=== PATIENT | female | born 1965 | race Caucasian/White ===

== ENCOUNTER → 2017-05-22 08:01 | Outpatient (CLI) | payer BC ==
[2012-12-11 15:47] VITALS: BMI 24.0
[~2017-05-22 08:01] MED LIST: ASPIRIN325 MG PO; PRILOSEC20 MG PO; SYNTHROID125 MCG PO; TRIGLIDE160 MG PO
== END | disposition home or self-care (01) ==
LOC: D.CT 08:01
DX: R31.9 Hematuria, unspecified (principal)

== ENCOUNTER 2017-07-31 12:19 | Day surgery (SDC) | payer BC ==
[~2017-07-31] VITALS: Ht 162.6 cm; Wt 65.8 kg
--- NOTE | ~2017-07-31 | OP ---
PATIENT NAME: ESTEFANIA COLE MEDICAL RECORD: [id number] :65 LOCATION:D.OPS ADMISSION DATE: SURGEON: CECILE TONG MD DATE OF OPERATION: 07/31/2017 REFERRING PHYSICIAN: Ned Roca MD INSTRUCTOR WATCH ASSEMBLY/ONCOLOGIST: Carrie Monk MD INDICATIONS: Ms. 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 Her last colonoscopy was 03/22/2014 with finding showing sigmoid diverticulosis, hyperplastic rectal polyps, grade I internal hemorrhoids. She presents for outpatient surveillance colonoscopy. PREMEDICATIONS: Total IV anesthesia (propofol 180 mg). INSTRUMENT: Olympus video colonoscope. PROCEDURE AND FINDINGS: After receiving informed consent, Ms. Cole was placed in left lateral decubitus position and sedated as per anesthesia. After achieving adequate level of sedation, digital rectal exam was performed that showed no external hemorrhoidal tags, fissures, or fistulas. Normal sphincter tone, no palpable rectal masses. The colonoscope was introduced per rectally and advanced to the cecum without difficulty. The cecum, IC valve, and appendiceal orifice were identified. The terminal ileum was intubated and the distal small bowel mucosa was without erythema or ulcers. As the colonoscope was withdrawn, careful inspection was made of the glaser of the colon. Overall mucosa had normal vascular and fold pattern. There were few scattered diverticula seen in the sigmoid colon. Retroflexion in the rectum showed mild internal hemorrhoids. A good prep was present. Ms. Cole tolerated procedure well, no immediate complications. Withdrawal time was 6 minutes. ASSESSMENT: 1. Mild sigmoid diverticulosis coli. 2. Normal appearing terminal ileum. 3. Normal colonic mucosa. 4. Mild internal hemorrhoids. 5. History of colon polyps. 6. History of breast cancer. 7. Family history of colon cancer. RECOMMENDATIONS: 1. High-fiber diet. 2. Surveillance colonoscopy in 5 years. TRANSINT:[id number] Voice Confirmation ID: [id number] DOCUMENT ID: [id number] OPERATIVE REPORT [id number] ESTEFANIA COLE CECILE TONG MD at 1621 CC: CARRIE MONK MD and NED ROCA [id number] DICTATION DATE: 07/31/[address] DEPARTMENT: 07/31/17 1533 [facility] [place] 07/31/17 [facility] [address] [place] [address]
[2017-07-31 12:58] VITALS: Ht 162.6 cm; Wt 65.8 kg
[2017-07-31 13:19] LABS: HEMATOCRIT 38.5 % (36.0-48.0); HEMOGLOBIN 13.2 g/dL (12-16); MCH 30.6 pg (26.0-34.0); MCHC 34.3 g/dL (31.0-37.0); MCV 89.1 fL (80.0-100.0); MEAN PLATELET VOLUME 10.9 fL (7.4-10.4); RBC 4.32 10x6/uL (4.00-5.40); WBC 5.4 10x3/uL (4.8-10.8)
[2017-07-31 13:46] LABS: CALC OSMOLALITY 277 mosm/kg (275-300); CALCIUM 9.2 mg/dL (8.5-10.1); CARBON DIOXIDE 25.5 mmol/L (21.0-32.0); CHLORIDE - SERUM 102 mmol/L (98-107); CREATININE - SERUM 0.8 mg/dL (0.6-1.3); GLUCOSE 93 mg/dL (74-106); POTASSIUM - SERUM 3.5 mmol/L (3.5-5.1); SODIUM 139 mmol/L (136-145); UREA NITROGEN 12 mg/dL (7-18); eGFR NON AFRICAN AMERICAN 80 mL/min (90-120)
== END 2017-07-31 16:20 | disposition home or self-care (01) ==
LOC: D.OPS 12:19
PROVIDERS: Anesthesiology
DX: K92.1 Melena (principal); Z86.010 Personal history of colon polyps; Z85.3 Personal history of malignant neoplasm of breast; Z80.0 Family history of malignant neoplasm of digestive organs; K64.8 Other hemorrhoids; E03.9 Hypothyroidism, unspecified; K21.9 Gastro-esophageal reflux disease without esophagitis; Z01.812 Encounter for preprocedural laboratory examination

== ENCOUNTER 2017-09-04 12:07 | Day surgery (SDC) | payer BC ==
[~2017-09-04] VITALS: Ht 162.6 cm; Wt 65.9 kg
--- NOTE | ~2017-09-04 | OP ---
PATIENT NAME: ESTEFANIA COLE MEDICAL RECORD: [id number] :65 LOCATION:NATALIYA ADMISSION DATE: SURGEON: CECILE TONG MD DATE OF OPERATION: 09/04/2017 PROCEDURE: EGD with biopsy. INDICATIONS: Ms. Cole is a delightful 52-year-old woman who has had symptoms of intermittent dysphagia, heartburn, and nausea. She had a screening colonoscopy on 07/31/2017 that showed mild sigmoid diverticulosis, mild internal hemorrhoids. She presents for outpatient EGD. PREMEDICATIONS: Total IV anesthesia (propofol 250 mg). INSTRUMENT: Olympus video gastroscope. PROCEDURE AND FINDINGS: After receiving informed consent, Ms. Cole's posterior pharynx was anesthetized with Cetacaine spray. She was placed in left lateral decubitus position, sedated as per anesthesia. After achieving adequate level of sedation, gastroscope was introduced per orally and advanced to duodenum without difficulty. The esophageal mucosa was remarkable for small ulcer at the GE junction. There is no distinct Schatzki's ring. Small hiatal hernia is present. Gastric mucosa was notable for mild prepyloric and antral erythema and antral biopsies were obtained to rule out Helicobacter pylori. No lesions were seen along the incisura, cardia, or fundus. There were multiple small polyps in the body of the stomach measuring 0.3-0.5 cm in size and multiple polyps were biopsied. Pylorus was patent and competent. Duodenal mucosa without erythema or ulcers, also it appeared normal through the second portion. Biopsies were obtained from second portion of duodenum to rule out celiac disease. The gastroscope was then withdrawn. Biopsies were taken from the mid and distal esophagus. ASSESSMENT: 1. Small ulcer at the GE junction secondary to gastroesophageal reflux disease. 2. Small hiatal hernia. 3. Mild gastritis. 4. Gastric polyps. RECOMMENDATIONS: 1. Follow up histopathology. 2. Zantac 150 mg p.o. b.i.d. 3. Reflux precautions. 4. Follow up esophageal ulcer in 2-3 months. Follow up EGD in 2-3 months, document healing of esophageal ulcer. TRANSINT:[id number] Voice Confirmation ID: [id number] DOCUMENT ID: [id number] OPERATIVE REPORT [id number] ESTEFANIA COLE CECILE TONG MD at 1018 CC: ADENIKE MONK MD and SANTIAGO CARRANZA [id number] DICTATION DATE: 09/04/17 1615 TRACK MOVING MACHINE OPERATOR: 09/04/17 1656 [facility] [place] 09/04/17 [facility] [address] [place] [address]
[2017-09-04 12:37] LABS: BASOPHILS 0.2 % (0-2); EOSINOPHILS 1.4 % (0-7); HEMATOCRIT 39.2 % (36.0-48.0); HEMOGLOBIN 13.3 g/dL (12-16); LYMPHOCYTES 40.9 % (15-50); MCH 30.7 pg (26.0-34.0); MCHC 33.9 g/dL (31.0-37.0); MCV 90.5 fL (80.0-100.0); NEUTROPHILS 51.5 % (40-80); PLATELET COUNT 167 10x3/uL (130-400); RBC 4.33 10x6/uL (4.00-5.40); RDW 12.1 % (11.5-14.5); WBC 5.7 10x3/uL (4.8-10.8)
[2017-09-04 13:00] LABS: CALC OSMOLALITY 287 mosm/kg (275-300); CALCIUM 9.3 mg/dL (8.5-10.1); CARBON DIOXIDE 32.8 mmol/L (21.0-32.0); CHLORIDE - SERUM 106 mmol/L (98-107); CREATININE - SERUM 0.7 mg/dL (0.6-1.3); GLUCOSE 100 mg/dL (74-106); POTASSIUM - SERUM 3.7 mmol/L (3.5-5.1); SODIUM 144 mmol/L (136-145); UREA NITROGEN 16 mg/dL (7-18); eGFR NON AFRICAN AMERICAN > 90 mL/min (90-120)
[2017-09-04 14:05] VITALS: BP 129/78; Ht 162.6 cm; Wt 65.9 kg
== END 2017-09-04 17:30 | disposition home or self-care (01) ==
LOC: D.OPS 12:07
PROVIDERS: Anesthesiology
DX: R13.10 Dysphagia, unspecified (principal); E03.9 Hypothyroidism, unspecified; K21.9 Gastro-esophageal reflux disease without esophagitis; K25.9 Gastric ulcer, unspecified as acute or chronic, without hemorrhage or perforation; K44.9 Diaphragmatic hernia without obstruction or gangrene; K31.7 Polyp of stomach and duodenum; Z01.812 Encounter for preprocedural laboratory examination

== ENCOUNTER 2017-10-27 19:00 | Outpatient (CLI) | payer BC ==
[2017-09-04 14:05] VITALS: BMI 24.9
== END 2017-10-27 23:59 | disposition home or self-care (01) ==
LOC: D.MAMMO 19:00
DX: C50.912 Malignant neoplasm of unspecified site of left female breast (principal)

== ENCOUNTER 2018-02-24 13:30 | Day surgery (SDC) | payer BC ==
[~2018-02-24] VITALS: Ht 162.6 cm; Wt 68.2 kg
--- NOTE | ~2018-02-24 | OP ---
PATIENT NAME: ESTEFANIA COLE MEDICAL RECORD: [id number] :65 LOCATION:D.OPS ADMISSION DATE: SURGEON: CECILE TONG MD DATE OF OPERATION: 02/24/2018 PROCEDURE: EGD with biopsy. REFERRING PHYSICIAN: Ned Roca MD AIR MOTOR REPAIRER/ONCOLOGIST: Carrie Monk MD INDICATIONS: Ms. Cole is a delightful 52-year-old woman with history of GE reflux disease, noted to have esophageal ulcer on EGD on 09/04/2017. She had been on Zantac 150 mg twice a day and then omeprazole 20 mg p.o. daily was added. She has continued having some burning high epigastric pain. She presents for outpatient EGD. PREMEDICATIONS: Total IV anesthesia (coronary artery disease), propofol 150 mg. INSTRUMENT: Olympus video gastroscope. PROCEDURE AND FINDINGS: After receiving informed consent, Ms. Cole's posterior pharynx was anesthetized with Cetacaine spray, placed in left lateral decubitus position, and sedated as per anesthesia. After achieving adequate level of sedation, the gastroscope was introduced per orally and advanced to the duodenum without difficulty. The esophageal mucosa was without erythema, ulcers, strictures, or masses. The previously seen esophageal ulcer had healed. Distal third of the esophagus was biopsied for histology. A small sliding-type hiatal hernia was noted. Gastric mucosa was without erythema or ulcers. The mucosa appeared normal in the cardia, fundus, body of the stomach, and antrum. Pylorus was patent and competent. Duodenal mucosa was without erythema or ulcers, appeared normal to second portion. Gastroscope was then withdrawn. Ms. Cole tolerated the procedure well. No immediate complications. ASSESSMENT: 1. Healed esophageal ulcer. 2. Small sliding-type hiatal hernia. 3. GE reflux disease. 4. Burning epigastric pain (antral biopsy on 09/04/2017 was negative for H. pylori). RECOMMENDATIONS: 1. Increase omeprazole to 40 mg p.o. b.i.d. for 3 months. 2. Follow up histopathology. 3. Reflux precautions. TRANSINT:[id number] Voice Confirmation ID: [id number] DOCUMENT ID: [id number] OPERATIVE REPORT [id number] ESTEFANIA COLE CECILE TONG MD at 2003 CC: CARRIE MONK MD and NED ROCA [id number] DICTATION DATE: 02/24/181518 ROLL OVER PRESS OPERATOR: 02/24/181914 [facility] 02/24/18 [facility] [address] [place] [address]
[2018-02-24 13:34] LABS: HEMOGLOBIN 13.3 g/dL (12-16); MCH 30.4 pg (26.0-34.0); MCHC 34.1 g/dL (31.0-37.0); MCV 89.2 fL (80.0-100.0); MEAN PLATELET VOLUME 10.8 fL (7.4-10.4); RBC 4.37 10x6/uL (4.00-5.40); RDW 12.3 % (11.5-14.5); WBC 5.2 10x3/uL (4.8-10.8)
[2018-02-24] MEDS ORDERED: TAMOXIFEN CITRA20 MG PO (14:26)
[2018-02-24] MEDS ORDERED: GEMFIBROZIL600 MG PO (14:27)
[2018-02-24 14:35] VITALS: BP 141/70; Ht 162.6 cm; Wt 68.2 kg
== END 2018-02-24 16:00 | disposition home or self-care (01) ==
LOC: D.OPS 13:30
PROVIDERS: Anesthesiology
DX: K21.9 Gastro-esophageal reflux disease without esophagitis (principal); K44.9 Diaphragmatic hernia without obstruction or gangrene; Z01.812 Encounter for preprocedural laboratory examination

== ENCOUNTER 2018-04-20 11:57 | Outpatient (CLI) | payer BC ==
[~2018-04-20] VITALS: Ht 162.6 cm; Wt 68.2 kg
--- NOTE | ~2018-04-20 | HEMODYNAMI ---
PATIENT:ESTEFANIA FERRARI MEDICAL RECORD: [id number] : 65 LOCATION:[facility]IL[facility] ADMISSION DATE: 04/20/18 Generatedon:04/20/201815:23 Patient name: ESTEFANIA FERRARI Patient #: [id number] SSN: : 1965 Date of study: 04/20/2018 Page: Of Hemodynamic Procedure Report Patient Data Patient Demographics Procedure consent was obtained First Name: ESTEFANIA Gender: Female Last Name: VONDA : 1965 Middle Initial: VIKRAM Age: 52 year(s) Patient #: [id number] Race: Unknown Additional ID: [id number] Contact details [address]: [address] [place] [address] [place] State: [place] City: [place] Zip code: [address] Past Medical History Allergies: No known allergies Admission Admission Data Admission Date: 04/20/2018 Admission Time: 11:57 Procedure Procedure Types Cath Procedure Diagnostic Procedure LHC LHC w/Coronaries Procedure Description Procedure Date Procedure Date: 04/20/2018 Procedure Start Time: 15:15 Procedure End Time: 15:23 Procedure Staff Name Function Tirso Quigley MD Performing Physician Eugenia Hoffman RT Monitor Mónica Flood RN Nurse Yas Sparks RT Scrub Procedure Data Cath Procedure Fluoroscopy Diagnostic fluoroscopy Total fluoroscopy Time: 0.7 time: 0.7 min min Diagnostic fluoroscopy Total fluoroscopy dose: 181 dose: 181 mGy mGy Contrast Material Contrast Material Type Amount (ml) Isovue 300 28 Entry Location Entry Primary Successful Side Size Upsize Upsize Entry Closure Wiggins ccessful Closure Location (Fr) 1 (Fr) 2 (Fr) Remarks Device Remarks Radial Right 6 Fr Mechanical artery Short Compression Estimated blood loss: 5 ml Diagnostic catheters Device Type Used For End Catheter Placement DIAGNOSTIC Rumson 110cm 5 LV Angiography Fr catheter ([id number]) DIAGNOSTIC Rumson 110cm 5 Left Coronary Fr catheter ([id number]) Angiography DIAGNOSTIC Rumson 110cm 5 Right Coronary Fr catheter ([id number]) Angiography Procedure Complications No complications Procedure Medications Medication Administration Route Dosage 0.9% NaCl I.V. 100 ml/hr Oxygen etCO2 Nasal cannula 2 l/min Lidocaine 2% added to field 20 Heparin Flush Bag added to field 2 bags (1000units/500ml NS) Radial Cocktail added to field 1 syringe (Verapomil 2mg/Nitro 400mcg/Heparin 1500units) Versed I.V. 2 mg Fentanyl I.V. 50 mcg Versed I.V. 1 mg Fentanyl I.V. 25 mcg Hemodynamics Rest Heart Rate: 79 (bpm) Pressure Samples Time Site Value (mmHg) Purpose Heart Use Rate(bpm) 15:18 LV 117/5,12 EDP 92 15:19 AO 114/71(91) Pullback 91 15:19 LV 130/11,15 Pullback 91 Gradients Valve Time Site 1 Site 2 Mean SEP/DFP Peak To Heart Use (mmHg) (sec/min) Peak Rate (mmHg) (bpm) Aortic 15:19 LV AO 12 22 16 91 130/11,15 114/71(91) Calculations Valve P-P Mean Valve Index Valve Source Name Gradient Area Flow (cm2) Aortic 16 12 16 12 Snapshots Pre Cath Intra NCS Post Cath Vital Signs Time Heart Resp SPO2 etCO2 NIBP (mmHg) Rhythm Pain Sedation Rate (ipm) (%) (mmHg) Status Level (bpm) 15:07:28 88 13 100 39.9 144/71(112) NSR 0 (11) 10(A) , No pain 15:11:44 82 14 100 44.4 125/66(87) NSR 0 (11) 10(A) , No pain 15:15:58 87 9 99 44.4 119/62(88) NSR 0 (11) 10(A) , No pain 15:20:09 88 8 98 45.9 108/63(90) NSR 0 (11) 10(A) , No pain Medications Time Medication Route Dose Verified Delivered Reason Notes E ffectiveness by by 15:06:26 0.9% NaCl I.V. 100 Tirso Sales used for ml/hr DannMiles Flood procedure MD SAMS 15:06:33 Oxygen etCO2 2 l/min Tirso Sales used for Nasal [facility] Flood procedure cannula MD SAMS 15:06:39 Lidocaine 2% added 20ml Tirso Chahal for local to vial [place] Dann anesthetic field MD [place] 15:06:44 Heparin Flush added 2 bags Tirso Chahal used for Bag to [facility] procedure (1000units/500ml field MD [place]TON NS) 15:06:49 Radial Cocktail added 1 Tirso Chahal used for (Verapomil to syringe [facility] procedure 2mg/Nitro field MD [place]TON 400mcg/Heparin 1500units) 15:13:17 Versed I.V. 2 mg Tirso Sales for DannMiles Flood sedation RN 15:13:24 Fentanyl I.V. [address] Sales [address] [facility] Flood sedation RN 15:18:23 Versed I.V. 1 mg [address]so [address]a [address] [facility] Miles Flood sedation RN 15:18:28 Fentanyl I.V. 25 m[address] Sales [address] [facility] Flood sedation eviction specialist Log Time Note 14:51:00 Time tracking: Regular hours (M-F 7:00 - 5:00) 14:51:05 Plan of Care:Hemodynamics will remain stable., Cardiac rhythm will remain stable., Comfort level will be maintained., Respiratory function will remain adequate., Patient/ family verbilizes understanding of procedure., Procedure tolerated without complication., Recovers from procedure without complications.. 14:51:23 Yas Sparks RT(R) sent for patient. Start room use. 14:59:49 Patient received from Pre/Post Procedure Room to CCL 1 Alert and oriented. Tansferred to table in Supine position. 14:59:50 Warm blankets applied, and raymon hugger turned on for patient comfort. 14:59:50 Correct patient and procedure confirmed by team. 14:59:53 Signed procedure consent form obtained from patient. 14:59:54 ECG and BP/O2 sat monitors applied to patient. 14:59:55 Full Disclosure recording started 15:06:18 Vital chart was started 15:06:26 0.9% NaCl 100 ml/hr I.V. was administered by Mónica Flood RN; used for procedure; 15:06:33 Oxygen 2 l/min etCO2 Nasal cannula was administered by Mónica Flood RN; used for procedure; 15:06:39 Lidocaine 2% 20ml vial added to field was administered by Tirso Quigley MD; for local anesthetic; 15:06:44 Heparin Flush Bag (1000units/500ml NS) 2 bags added to field was administered by Tirso Quigley MD; used for procedure; 15:06:49 Radial Cocktail (Verapomil 2mg/Nitro 400mcg/Heparin 1500units) 1 syringe added to field was administered by Tirso Quigley MD; used for procedure; 15:09:21 Rhythm: sinus rhythm 15:09:23 Baseline sample Acquired. 15:09:30 H&P Date Dictated: 04/14/2018 Within 30 days and on chart., H&P Addendum completed by physician on day of procedure. (MUST COMPLETE FOR ALL OUTPATIENTS). 15:09:32 Pre-procedure instructions explained to patient. 15:09:32 Pre-op teaching completed and patient verbalized understanding. 15:09:35 Family in patients room. 15:09:37 Patient NPO since Midnight. 15:09:44 Patient allergic to No known allergies 15:09:46 Is the patient allergic to Iodine/contrast media? No. 15:09:47 Is patient on blood thinner?No 15:09:48 Patient diabetic? No. 15:10:01 Previous problem with sedation/anesthesia? Yes NAUSEA 15:10:05 Snore? No 15:10:06 Sleep apnea? No 15:10:07 Deviated septum? No 15:10:07 Opens mouth fully? Yes 15:10:08 Sticks out tongue? Yes 15:10:10 Airway obstruction? No ? 15:10:13 Dentures? No ? 15:10:17 Pre procedure: right dorsailis pedis pulse 2+ Normal; easily identifiable; not easily obliterated 15:10:19 Modified Jarred's test Ulnar < 7 seconds 15:10:21 Patient pain scale 0/10 ?. 15:10:29 IV patent on arrival in left forearm with 0.9% NaCl at KVO. 15:10:31 Lab results completed and on chart. 15:10:35 Right Radial & Right Groin area was prepped with chlora-prep and draped in sterile fashion 15:10:36 Alarms reviewed by R. N. 15:10:36 Sharps counted by scrub and verified by R.N. 15:10:39 Use device set Radial Dx or PCI 15:10:39 ACIST Syringe (26829) opened to sterile field. 15:10:40 Medline Cath Pack ([id number]) opened to sterile field. 15:10:40 Bag Decanter (2001S) opened to sterile field. 15:10:41 DIAGNOSTIC WIRE .035 260cm J wire (293176) opened to sterile field. 15:10:42 ACIST Hand Control (26385) opened to sterile field. 15:10:42 ACIST Manifold (80453) opened to sterile field. 15:10:43 MBrace Wrist Support ([id number]) opened to sterile field. 15:10:45 SHEATH 6FR Slender (29-8556) opened to sterile field. 15:13:01 Final Timeout: patient, procedure, and site verified with staff and physician. All members of the team are in agreement. 15:13:03 Right Radial site verified by team. 15:13:05 Physical assessment completed. ASA score P 2 - A patient with mild systemic disease as per Tirso Quigley MD. 15:13:08 Sedation plan: IV Moderate Sedation Medication:Versed, Fentanyl 15:13:17 Versed 2 mg I.V. was administered by Mónica Flood RN; for sedation; 15:13:24 Fentanyl 50 mcg I.V. was administered by Mónica Flood RN; for sedation; 15:15:05 Procedure started. 15:15:11 Local anesthetic to right radial artery with Lidocaine 2% by Tirso Quigley MD.INITIAL ACCESS ONLY 15:17:34 A 6 Fr Short sheath was inserted into the Right Radial artery 15:18:08 A DIAGNOSTIC Rumson 110cm 5 Fr catheter (263995) was advanced over the wire and used for LV Angiography. 15:18:23 Versed 1 mg I.V. was administered by Mónica Flood RN; for sedation; 15:18:28 Fentanyl 25 mcg I.V. was administered by Mónica Flood RN; for sedation; 15:19:10 LV gram done using JARAMILLO 15:19:14 EF : 55 % 15:19:18 Injector settings: Ml/sec: 5, Volume: 15, 15:19:19 LV hemodynamics recorded. 15:20:13 A DIAGNOSTIC Rumson 110cm 5 Fr catheter (369982) was advanced over the wire and used for Left Coronary Angiography. 15:20:19 A DIAGNOSTIC Rumson 110cm 5 Fr catheter (291242) was advanced over the wire and used for Right Coronary Angiography. 15:20:31 Catheter removed. 15:20:44 Sheath removed intact; hemostasis achieved with Mechanical Compression to the Right Radial artery. 15:20:46 Procedure ended.(Physican Out) 15:21:14 Fluoroscopy time 00.70 minutes. 15:21:17 Fluoroscopy dose: 181 mGy 15:21:17 Flurop Dose total: 181 15:21:22 Contrast amount:Isovue 300 28ml. 15:21:24 Sharps counted by scrub and verified by R.N. 15:21:25 TR band inflated with 11cc of air. 15:21:26 Insertion/operative site no bleeding no hematoma. 15:21:32 Post right radial artery:stable, clean and dry 15:21:33 Post Procedure Pulses reassessed and unchanged 15:21:35 Post-procedure physical assessment completed. ASA score P 2 - A patient with mild systemic disease as per Tirso Quigley MD. 15:21:37 Post procedure rhythm: unchanged. 15:21:50 Estimated blood loss: 5 ml 15:21:51 Post procedure instruction explained to patient.Patient verbalizes understanding. 15:21:52 Patient needs reinforcement of post procedure teaching. 15:22:03 Procedure Complication : No complications 15:22:04 See physician's report for complete and final results. 15:22:13 TR BAND Standard ([id number]) opened to sterile field. 15:22:28 Procedure and supply charges have been captured, reviewed, submitted and are correct. 15:22:58 Vital chart was stopped 15:23:01 Report given to Pre/Post Procedure Room. 15:23:04 Patient transfered to Pre/Post Procedure Room with Stretcher. 15:23:22 Procedure ended. 15:23:22 Full Disclosure recording stopped 15:23:25 End room use (Document Last) Device Usage Item Name Manufacture Quantity Catalog Hospital Part Current Minimal Lot# / Number Charge Number Stock Stock Serial# Code ACIST Acist 1 [id number] [id number] 751500 349841 20 Syringe Medical (01305) Systems Inc Medline Medline 1 [id number] 24801 055825 5 Cath Pack ([id number]) Bag Microtek 1 [id number] 68764 980663 5 Decanter Medical Inc. () DIAGNOSTIC [facility] [place] 1 967365 038893 094168 329637 30 WIRE .035 260cm J wire (354870) ACIST Hand Acist 1 94058 431145 361223 211343 5 Control Medical (37646) Systems Inc ACIST Acist 1 83677 027752 084083 967519 5 Manifold Medical (72660) Systems Inc MBrace Advanced 1 140-0250-00 767696 16715 706256 5 Wrist Vascular Support Dynamics ([id number]) SHEATH 6FR Terumo 1 [id number] 457079 436088 651215 5 Slender (801060) DIAGNOSTIC Terumo 1 40-8083 396942 503490 875127 5 Rumson 110cm 5 Fr catheter (509706) TR BAND Terumo 1 [id number] 363453 786704 075460 40 Standard ([id number]) Signature Audit [place] Stage Time Signature Unsigned Intra-Procedure 04/20/2018 Eugenia 3:23:35 PM Counts RT(R) Signatures Monitor : Eugenia Signature : Counts RT Date : Time : [place] [id number] [place] [address]
[~2018-04-20 11:57] MED LIST changes: +GEMFIBROZIL600 MG PO; +TAMOXIFEN CITRA20 MG PO
[2018-04-20] MEDS ORDERED: HYDROCHLOROTHIA25 MG PO (12:16)
[2018-04-20 12:36] VITALS: BP 139/58; Ht 162.6 cm; Wt 68.2 kg
[2018-04-20 12:57] LABS: BASOPHILS 0.4 % (0-2); EOSINOPHILS 1.8 % (0-7); HEMATOCRIT 38.9 % (36.0-48.0); HEMOGLOBIN 13.1 g/dL (12-16); LYMPHOCYTES 38.2 % (15-50); MCH 29.8 pg (26.0-34.0); MCHC 33.7 g/dL (31.0-37.0); MCV 88.4 fL (80.0-100.0); MEAN PLATELET VOLUME 10.6 fL (7.4-10.4); MONOCYTES 6.5 % (2-11); NEUTROPHILS 53.1 % (40-80); PLATELET COUNT 177 10x3/uL (130-400); RDW 11.9 % (11.5-14.5); WBC 5.6 10x3/uL (4.8-10.8)
[2018-04-20 13:14] LABS: CALC OSMOLALITY 283 mosm/kg (275-300); CALCIUM 8.7 mg/dL (8.5-10.1); CARBON DIOXIDE 28.9 mmol/L (21.0-32.0); CHLORIDE - SERUM 105 mmol/L (98-107); CREATININE - SERUM 0.7 mg/dL (0.6-1.3); GLUCOSE 97 mg/dL (74-106); POTASSIUM - SERUM 3.8 mmol/L (3.5-5.1); SODIUM 142 mmol/L (136-145); UREA NITROGEN 14 mg/dL (7-18); eGFR NON AFRICAN AMERICAN > 90 mL/min (90-120)
--- NOTE | 2018-04-20 15:40 | NUR ---
RECIEVED TO ROOM VIA STRETCHER FROM ROUNDER HAND WITH TR BAND TO R/WRIST CDI NO BLEEDING OR HEMATOMA NOTED. PATIENT CONNECTED TO MONITOR FOR OBSERVATION WITH HR 88 BP 134/66. FAMILY IS AT BEDSIDE
--- NOTE | 2018-04-20 15:57 | NUR ---
TR BAND REMAINS CDI WITH NO BLEEDING OR HEMATOMA NOTED. FAMILY IS PRESENT AT BEDSIDE DR VANG
--- NOTE | 2018-04-20 16:26 | NUR ---
RESTING QUIETLY WITH TR BAND CDI NO BLEEDING NOTED. VSS AND CHEST PAIN IS DENIED
--- NOTE | 2018-04-20 16:49 | NUR ---
REPOSITIONED TO HOB UP 30 FOR COMFORT. HR 76 BP 102/54 CHEST PAIN DENIED TR BAND IS CDI
--- NOTE | 2018-04-20 17:04 | NUR ---
2 CC AIR REMOVED FROM TR BAND WITH NO BLEEDING OR HEMATOMA NOTED.
--- NOTE | 2018-04-20 17:18 | NUR ---
2 CC AIR REMOVED FROM TR BAND WITH NO BLEEDING OR HEMATOMA
--- NOTE | 2018-04-20 17:47 | NUR ---
2 CC AIR REMOVED FROM TR BAND WITH NO BLEEDING NOTED
--- NOTE | 2018-04-20 17:59 | NUR ---
PIV REMOVED WITH DRESSING APPLIED. 2 CC AIR REMOVED FROM TR BAND. CHEST PAIN IS DENIED PATIENT GETS UP TO DRESS FOR DISCHARGE HOME
--- NOTE | 2018-04-20 18:10 | NUR ---
VERBAL AND WRITTEN DISCHARGE GONE OVER WITH FAMILY AND PATIENT. VERBALIZED UNDERSTANDING. TR BAND REMOVED WITH DRESSING APPLIED. NO BLEEDING NOTED. PATIENT LEFT VIA WC TO PARKING FOR TRANSPORT HOME
--- NOTE | 2018-05-02 12:54 | OP ---
PATIENT NAME: ESTEFANIA FERRARI MEDICAL RECORD: [id number] :65 LOCATION:D.CAT ADMISSION DATE: SURGEON: JACK VAZQUEZ MD DATE OF OPERATION: 04/20/2018 PROCEDURE: Left heart catheterization, selective coronary angiography, right radial approach. CATHETERS: Radial sheath and [place] catheter. The procedure was well tolerated. The patient was returned to the rae. Sheath was removed. TR band was placed. FINDINGS: Left ventriculography in 30-degree JARAMILLO view: Normal wall motion and normal systolic function. CORONARY ANATOMY: LEFT MAIN: Left main is free of disease. LAD: Free of disease in the diagonal system. CIRCUMFLEX: Free of disease in the marginal system. RIGHT CORONARY ARTERY: Dominant artery, gives rise to PDA, free of disease. IMPRESSION: Normal LV systolic function. Normal coronary anatomy. TRANSINT:[id number] Voice Confirmation ID: [id number] DOCUMENT ID: [id number] JACK VAZQUEZ MD at 1254 CC: [id number] DICTATION DATE: 04/20/18 1525 GRINDING ROOM INSPECTOR: 04/20/18 1713 DEP CLI 04/20/18 [facility] [address] [place] [address]
== END 2018-04-20 18:25 | disposition home or self-care (01) ==
LOC: D.CATH 11:57
PROVIDERS: Internal Medicine Interventional Cardiology
DX: R06.02 Shortness of breath (principal); I20.9 Angina pectoris, unspecified

== ENCOUNTER 2018-10-28 09:00 | Outpatient (CLI) | payer BC ==
[2018-04-20 12:36] VITALS: BMI 25.8
[~2018-10-28 09:00] MED LIST changes: +HYDROCHLOROTHIA25 MG PO
== END 2018-10-28 10:00 | disposition home or self-care (01) ==
LOC: D.MAMMO 09:00
PROVIDERS: ATTEND Internal Medicine Hematology & Oncology
DX: C50.912 Malignant neoplasm of unspecified site of left female breast (principal)

== ENCOUNTER → 2019-05-20 09:58 | Outpatient (CLI) | payer BC ==
[2018-04-20 12:36] VITALS: BMI 25.8
== END | disposition home or self-care (01) ==
LOC: D.MRI 09:58
PROVIDERS: ATTEND Family Medicine
DX: G95.0 Syringomyelia and syringobulbia (principal)

== ENCOUNTER 2019-11-01 19:00 | Outpatient (CLI) | payer BC ==
[2018-04-20 12:36] VITALS: BMI 25.8
== END 2019-11-01 23:59 | disposition home or self-care (01) ==
LOC: D.MAMMO 19:00
PROVIDERS: ATTEND Internal Medicine Hematology & Oncology
DX: C50.412 Malignant neoplasm of upper-outer quadrant of left female breast (principal); Z85.3 Personal history of malignant neoplasm of breast